=== PATIENT | female | born 1950 | race African-American/Black ===

== ENCOUNTER 2020-09-18 11:18 | Inpatient (IN) | payer MEDICARE, MEDICAID ==
[2020-09-18] VITALS (21 sets, daily range): BP systolic 106–141; BP diastolic 67–78
[~2020-09-18] VITALS: Ht 170.2 cm; Wt 88.1 kg
[2020-09-18] MEDS ORDERED: HALOPERIDOL LACTATE 5MG/ML VIAL IM ONE (11:45)
[2020-09-18 12:01] LABS: BASOPHILS % 0.7 % (0.0-2.0); EOSINOPHILS % 1.9 % (0.0-5.0); HEMATOCRIT. 42.9 % (36.0-48.0); HEMOGLOBIN. 14.1 g/dL (12.0-16.0); LYMPHOCYTES % 35.7 % (20.0-50.0); MEAN CORPUSCULAR HEMOGLOBIN 28.3 pg (28.0-32.0); MEAN PLATELET VOLUME 7.1 fl (7.4-10.4); MONOCYTES % 9.6 % (2.0-8.0); NEUTROPHILS % 52.1 % (40.0-76.0); PLATELET 374 x1000/uL (130-400); RED BLOOD CELL COUNT 4.99 mill/uL (4.2-5.4); RED CELL DISTRIBUTION WIDTH 15.1 % (11.6-14.6)
[2020-09-18 12:06] LABS: CHLORIDE 104 mEq/L (98-107); PROTHROMBIN TIME 11.2 sec (9.6-11.0)
[2020-09-18 12:12] LABS: ETHANOL BLOOD < 10 mg/dL
[2020-09-18 12:15] LABS: LDL CHOLESTEROL 100 mg/dL (5-100)
[2020-09-18] MEDS ORDERED: LORAZEPAM 2MG/ML CPJ IV ONE (14:00)
[2020-09-18] MEDS ORDERED: LEVETIRACETAM 500MG PREMIX 100 ML IV NR (15:00)
[2020-09-18] MEDS: DEXAMETHASONE 10 MG/ML VIAL IV NR ×2 (15:06→15:07)
[2020-09-18] MEDS: DEXT 5%/LACTATED RINGERS 1,000 ML IV SCH (16:00)
[2020-09-18] MEDS ORDERED: MANNITOL 20% (20GM/100ML) BAG 500ML PREMIX IV ONE (16:00)
[2020-09-18] MEDS ORDERED: NICARDIPINE 100 MG in SODIUM CHLORIDE 0.9% 60 ML IV PRN ×2 (16:00→19:15)
[2020-09-18] MEDS ORDERED: MANNITOL 20% 125 ML IV NR (16:15)
[2020-09-18] MEDS: MORPHINE SULFATE 4 MG/ML CPJ (NOT FOR IM USE) IV PRN (16:20)
[2020-09-18 16:38] LABS: CLARITY URINE CLEAR (CLEAR); COLOR URINE DARK YELLOW (YELLOW); KETONES URINE 1+ (NEGATIVE); LEUKOCYTE ESTERASE URINE NEGATIVE (NEGATIVE); NITRITE URINE NEGATIVE (NEGATIVE); OCCULT BLOOD URINE NEGATIVE (NEGATIVE); PH URINE 5.5 (4.5-8.0); PROTEIN URINE TRACE (NEGATIVE); SPECIFIC GRAVITY URINE 1.029 (1.005-1.030)
[2020-09-18 16:49] LABS: *AMPHETAMINES SCREEN URINE NEGATIVE (NEGATIVE); *BARBITURATES SCREEN URINE NEGATIVE (NEGATIVE)
[2020-09-18 16:50] LABS: *BENZODIAZEPINES SCREEN URINE NEGATIVE (NEGATIVE); *COCAINE SCREEN URINE PRESUMTIVE POSITIVE (NEGATIVE); CANNABINOID URINE SCREEN NEGATIVE (NEGATIVE); METHADONE URINE SCREEN NEGATIVE (NEGATIVE); OPIATES URINE SCREEN NEGATIVE (NEGATIVE); PHENCYCLIDINE URINE SCREEN NEGATIVE (NEGATIVE)
[2020-09-18] MEDS: DEXAMETHASONE 4MG/ML 1ML VIAL IV SCH ×2 (19:41→23:07)
[2020-09-18] MEDS ORDERED: LEVETIRACETAM 500MG PREMIX 100 ML IV SCH (21:00)
[2020-09-18] MEDS: LEVETIRACETAM 500MG PREMIX 100 ML IV SCH (21:56)
[2020-09-19] VITALS (94 sets, daily range): BP systolic 105–145; BP diastolic 56–105
[2020-09-19] MEDS: DEXAMETHASONE 4MG/ML 1ML VIAL IV SCH ×4 (05:02→23:20)
[2020-09-19 05:46] LABS: CHLORIDE 106 mEq/L (98-107)
[2020-09-19 05:53] LABS: BASOPHILS % 0.3 % (0.0-2.0); HEMATOCRIT. 39.8 % (36.0-48.0); HEMOGLOBIN. 13.3 g/dL (12.0-16.0); LYMPHOCYTES % 16.4 % (20.0-50.0); MEAN CORPUSCULAR HEMOGLOBIN 28.3 pg (28.0-32.0); MEAN CORPUSCULAR VOLUME 84.6 fL (81.0-99.0); MEAN PLATELET VOLUME 7.2 fl (7.4-10.4); NEUTROPHILS % 81.3 % (40.0-76.0); PLATELET 350 x1000/uL (130-400); RED BLOOD CELL COUNT 4.71 mill/uL (4.2-5.4)
[2020-09-19] MEDS: DEXT 5%/LACTATED RINGERS 1,000 ML IV SCH ×2 (08:03→10:12)
[2020-09-19] MEDS: PANTOPRAZOLE SODIUM 40 MG/VIAL IV SCH (10:12)
[2020-09-19] MEDS: LEVETIRACETAM 500MG PREMIX 100 ML IV SCH ×2 (10:12→20:21)
[2020-09-20] VITALS (31 sets, daily range): BP systolic 98–164; BP diastolic 45–106
[2020-09-20] MEDS: MORPHINE SULFATE 4 MG/ML CPJ (NOT FOR IM USE) IV PRN ×2 (01:05→09:43)
[2020-09-20] MEDS: DEXT 5%/LACTATED RINGERS 1,000 ML IV SCH ×2 (03:00→17:52)
[2020-09-20] MEDS: DEXAMETHASONE 4MG/ML 1ML VIAL IV SCH ×3 (06:01→17:50)
[2020-09-20] MEDS: PANTOPRAZOLE SODIUM 40 MG/VIAL IV SCH (08:57)
[2020-09-20] MEDS: LEVETIRACETAM 500MG PREMIX 100 ML IV SCH ×2 (08:57→21:00)
[2020-09-21 08:00] VITALS: BP 145/98
[2020-09-21] MEDS: PANTOPRAZOLE SODIUM 40 MG/VIAL IV SCH (08:22)
[2020-09-21] MEDS: LORAZEPAM 2MG/ML CPJ IV PRN ×2 (08:22→21:40)
[2020-09-21] MEDS: LEVETIRACETAM 500MG PREMIX 100 ML IV SCH ×3 (08:25→21:06)
[2020-09-21 12:00] VITALS: BP 127/63
[2020-09-21 16:00] VITALS: BP 125/80
[2020-09-21] MEDS ORDERED: LOSA25TA26 MT (16:26)
[2020-09-21] MEDS ORDERED: LEVE500T19 MT (16:26)
[2020-09-21 18:00] VITALS: BP 110/69
[2020-09-21 20:00] VITALS: BP 127/77
[2020-09-21] MEDS: FAMOTIDINE 20MG/2ML VIAL IV SCH (21:06)
[2020-09-22] VITALS: BP 119/74
[2020-09-22 05:30] VITALS: BP 115/75
[2020-09-22 08:00] VITALS: BP 132/84
[2020-09-22] MEDS: LORAZEPAM 2MG/ML CPJ IV PRN (08:27)
[2020-09-22] MEDS: FAMOTIDINE 20MG/2ML VIAL IV SCH ×2 (08:27→21:00)
[2020-09-22] MEDS: LEVETIRACETAM 500MG PREMIX 100 ML IV SCH ×2 (08:28→21:00)
[2020-09-22 12:00] VITALS: BP 138/90
[2020-09-22] MEDS ORDERED: LORAZEPAM 2MG/ML CPJ IM PRN (12:30)
[2020-09-22] MEDS ORDERED: LORAZEPAM 2MG/ML CPJ IM NR (12:41)
[2020-09-23] MEDS: FAMOTIDINE 20MG/2ML VIAL IV SCH ×2 (09:00→21:00)
[2020-09-23] MEDS: LEVETIRACETAM 500MG PREMIX 100 ML IV SCH ×2 (09:00→21:00)
[2020-09-23] MEDS ORDERED: LORAZEPAM 2MG/ML CPJ IM PRN (10:15)
[2020-09-23] MEDS ORDERED: HALOPERIDOL LACTATE 5MG/ML VIAL IM PRN (10:15)
[2020-09-24] MEDS: LEVETIRACETAM 500MG PREMIX 100 ML IV SCH ×2 (08:38→21:00)
[2020-09-24] MEDS: FAMOTIDINE 20MG/2ML VIAL IV SCH ×2 (08:39→21:00)
[2020-09-24 12:00] VITALS: BP_SYST 120; BP_SYST 92; BP_DIAS 38; BP_DIAS 84
[2020-09-25 08:00] VITALS: BP 146/107
[2020-09-25] MEDS: LEVETIRACETAM 500MG PREMIX 100 ML IV SCH (09:00)
[2020-09-25] MEDS: FAMOTIDINE 20MG/2ML VIAL IV SCH (09:00)
[2020-09-25 12:00] VITALS: BP_SYST 142; BP_SYST 92; BP_DIAS 92
[2020-09-25 16:00] VITALS: BP 127/95
[2020-09-25] MEDS: LEVETIRACETAM 500MG/5ML CUP PO SCH (21:00)
[2020-09-25] MEDS: FAMOTIDINE 20MG TABLET PO SCH (21:00)
[2020-09-26] MEDS: FAMOTIDINE 20MG TABLET PO SCH ×2 (09:00→21:00)
[2020-09-26] MEDS: LEVETIRACETAM 500MG/5ML CUP PO SCH ×2 (09:00→21:00)
[2020-09-27] MEDS: LEVETIRACETAM 500MG/5ML CUP PO SCH ×2 (09:00→21:00)
[2020-09-27] MEDS: FAMOTIDINE 20MG TABLET PO SCH ×2 (09:00→21:00)
[2020-09-28] MEDS: LEVETIRACETAM 500MG/5ML CUP PO SCH (09:00)
[2020-09-28] MEDS: FAMOTIDINE 20MG TABLET PO SCH (09:00)
[2020-09-29] MEDS: LEVETIRACETAM 500MG/5ML CUP PO SCH ×3 (09:00→21:00)
[2020-09-29] MEDS: FAMOTIDINE 20MG TABLET PO SCH ×2 (09:00→21:00)
[2020-09-29] MEDS: ACETAMINOPHEN 325MG TABLET PO PRN (20:20)
[2020-09-30] MEDS: LEVETIRACETAM 500MG/5ML CUP PO SCH ×2 (09:25→21:20)
[2020-09-30] MEDS: ACETAMINOPHEN 325MG TABLET PO PRN (09:25)
[2020-09-30] MEDS: FAMOTIDINE 20MG TABLET PO SCH ×2 (09:25→21:20)
[2020-09-30 20:00] VITALS: BP 155/78
[2020-10-01] MEDS: ACETAMINOPHEN 325MG TABLET PO PRN ×3 (00:06→18:04)
[2020-10-01] MEDS: FAMOTIDINE 20MG TABLET PO SCH ×2 (09:07→21:00)
[2020-10-01] MEDS: LEVETIRACETAM 500MG/5ML CUP PO SCH ×2 (09:07→21:00)
[2020-10-01 16:00] VITALS: BP 121/60
[2020-10-02] MEDS ORDERED: HYDROCODONE/ACETAMINOPHEN 5/325MG TABLET PO PRN (05:30)
[2020-10-02] MEDS: FAMOTIDINE 20MG TABLET PO SCH (09:35)
[2020-10-02] MEDS: LEVETIRACETAM 500MG/5ML CUP PO SCH (09:35)
[2020-10-02 10:51] VITALS: BP 110/90
[2020-10-02 12:00] VITALS: BP 110/90
== END 2020-10-02 14:52 | DRG 44 ==
LOC: ER 11:18 → MICUNO 14:57 → EDBEDREQSVC 15:08 → EDBEDREQ 15:08 → ENRESERV 17:50 → 3WST 09-20 16:58 → 6EST 09-21 23:03
PROVIDERS: ADMIT Internal Medicine; ATTEND Internal Medicine
DX: I61.0 Nontraumatic intracerebral hemorrhage in hemisphere, subcortical (principal); I10 Essential (primary) hypertension; E87.1 Hypo-osmolality and hyponatremia; G81.94 Hemiplegia, unspecified affecting left nondominant side; G93.40 Encephalopathy, unspecified; F14.10 Cocaine abuse, uncomplicated; Z20.822 Contact with and (suspected) exposure to COVID-19; L89.90 Pressure ulcer of unspecified site, unspecified stage; I16.0 Hypertensive urgency; E46 Unspecified protein-calorie malnutrition; Z87.891 Personal history of nicotine dependence; Z88.0 Allergy status to penicillin; Z71.51 Drug abuse counseling and surveillance of drug abuser; Z68.30 Body mass index [BMI] 30.0-30.9, adult
CPT/HCPCS: 36415; 71045; 80048; 80053; 80305; 80320; 81003; 82040; 82962; 83721; 84134; 84484; 85025; 87426; 92610; 93005; 96365; 97110; 97112; 97162; 97166; 97530; 97535; 99291; C1893; C9113; J1100; J1630; J1953; J2060; J2270; J3490; J7050; A4315; G0480

== ENCOUNTER 2020-11-01 07:31 | Emergency (ER) | payer MEDICARE, MEDICAID ==
[~2020-11-01] VITALS: Ht 172.7 cm; Wt 90.0 kg
[~2020-11-01 07:31] MED LIST: LEVE500T19 MT; LOSA25TA26 MT
[2020-11-01] MEDS ORDERED: OLANZAPINE 10 MG/VIAL IM ONE (08:00)
[2020-11-01] MEDS ORDERED: LORAZEPAM 2MG/ML CPJ IM ONE (08:00)
[2020-11-01 08:23] LABS: BASOPHILS % 0.4 % (0.0-2.0); EOSINOPHILS % 0.1 % (0.0-5.0); HEMATOCRIT. 40.4 % (36.0-48.0); HEMOGLOBIN. 13.3 g/dL (12.0-16.0); LYMPHOCYTES % 17.7 % (20.0-50.0); MEAN CORPUSCULAR HEMOGLOBIN 28.8 pg (28.0-32.0); MEAN CORPUSCULAR VOLUME 87.5 fL (81.0-99.0); MONOCYTES % 7.8 % (2.0-8.0); PLATELET 257 x1000/uL (130-400); RED BLOOD CELL COUNT 4.62 mill/uL (4.2-5.4); RED CELL DISTRIBUTION WIDTH 15.6 % (11.6-14.6)
[2020-11-01 08:29] LABS: CHLORIDE 101 mEq/L (98-107)
[2020-11-01 08:34] LABS: ETHANOL BLOOD < 10 mg/dL
[2020-11-01 11:19] LABS: CLARITY URINE CLOUDY (CLEAR); COLOR URINE DARK YELLOW (YELLOW); KETONES URINE 2+ (NEGATIVE); LEUKOCYTE ESTERASE URINE TRACE (NEGATIVE); NITRITE URINE NEGATIVE (NEGATIVE); OCCULT BLOOD URINE NEGATIVE (NEGATIVE); PROTEIN URINE 1+ (NEGATIVE); SPECIFIC GRAVITY URINE 1.028 (1.005-1.030)
[2020-11-01 11:46] LABS: *AMPHETAMINES SCREEN URINE NEGATIVE (NEGATIVE); *BARBITURATES SCREEN URINE NEGATIVE (NEGATIVE); *BENZODIAZEPINES SCREEN URINE NEGATIVE (NEGATIVE); *COCAINE SCREEN URINE PRESUMTIVE POSITIVE (NEGATIVE)
[2020-11-01 11:47] LABS: CANNABINOID URINE SCREEN NEGATIVE (NEGATIVE); METHADONE URINE SCREEN NEGATIVE (NEGATIVE); OPIATES URINE SCREEN NEGATIVE (NEGATIVE); PHENCYCLIDINE URINE SCREEN NEGATIVE (NEGATIVE)
[2020-11-01] MEDS: LEVETIRACETAM 500MG TABLET PO ONE ×2 (13:20→13:25)
[2020-11-01] MEDS ORDERED: KEPP500 MT (13:29)
[2020-11-01] MEDS ORDERED: NITR-87 MT (13:30)
[2020-11-01 17:50] VITALS: BP 130/75
== END 2020-11-01 17:55 | disposition home or self-care (01) ==
LOC: ER 07:31
DX: F14.129 Cocaine abuse with intoxication, unspecified (principal); R41.82 Altered mental status, unspecified; I10 Essential (primary) hypertension; Z88.0 Allergy status to penicillin; Z86.73 Personal history of transient ischemic attack (TIA), and cerebral infarction without residual deficits; Z20.822 Contact with and (suspected) exposure to COVID-19
CPT/HCPCS: 36415; 70450; 80053; 80305; 80307; 80320; 80329; 81003; 85025; 87086; 87426; 93005; 96372; 99285; J2060; J3490; Z7610; G0480